=== PATIENT | female | born 1935 | race Caucasian/White ===

== ENCOUNTER → 2016-06-29 | Day surgery (SDC) | payer OTHER ==
[2016-06-29] VITALS (8 sets, daily range): BP systolic 118–144; BP diastolic 51–75
[~2016-06-29] VITALS: Ht 165.1 cm; Wt 54.9 kg
[~2016-06-29] MED LIST: Akten 3.5% 1ml Btl ONE; BSS 15ml BTL ONE; BSS 500ml btl ONE; Carbachol 0.01% Op Soln 1.5ml vial ONE; Dexamethasone 4mg/ml vial ONE; Diclofenac Sod 0.1% Op Soln ONE; EPINEPHrine 1mg/1ml Amp ONE; Gatifloxacin Opth Solution 0.5% ONE; LR 1000ml ONE; Lidocaine 1% MPF 10mg/ml 5ml ONE; Midazolam 2mg/2ml Inj ONE; NS Irrig 1000ml ONE; Phenylephrine 2.5% Op Soln ONE; Povidone-Iodine 5% opth solution ONE; Sodium Hyaluronate 14 mg/ml 0.85ml ONE; Sterile Water Irrig 1000ml IRRIG ONE; Tobradex Opth Susp 2.5ml ONE; Tropicamide 1% Opth Soln ONE; VITAMIN D1000 UNI1 ORAL; fentaNYL 100 mcg/2 mL IV ONE
[2016-06-29] MEDS: Tobradex Opth Susp 2.5ml RIGHT EYE SCH ×3 (06:42→07:04)
[2016-06-29] MEDS: Diclofenac Sod 0.1% Op Soln RIGHT EYE SCH ×3 (06:42→07:04)
[2016-06-29] MEDS: Phenylephrine 2.5% Op Soln RIGHT EYE SCH ×3 (06:42→07:04)
[2016-06-29] MEDS: Tropicamide 1% Opth Soln RIGHT EYE SCH ×3 (06:42→07:04)
[2016-06-29] MEDS: Gatifloxacin Opth Solution 0.5% RIGHT EYE SCH ×3 (06:42→07:04)
[2016-06-29] MEDS: Akten 3.5% 1ml Btl RIGHT EYE SCH ×3 (06:43→07:04)
--- NOTE | 2016-06-29 07:41 | Anethesia Preoperative Eval ---
Anesthesia Pre-op PMH/ROS General Date of Evaluation: Jun 29, 2016 Time of Evaluation: 07:41 Anesthesiologist: frank ASA Score: ASA 2 Mallampati Score Class I : Soft palate, uvula, fauces, pillars visible Class II: Soft palate, uvula, fauces visible Class III: Soft palate, base of uvula visible Class IV: Only hard plate visible Mallampati Classification: Class II Surgeon: sigrid Diagnosis: cataract Surgical Procedure: cataract extraction with IOL Anesthesia History: none Family History: no anesthesia problems Allergies: Coded Allergies: No Known Allergies (Unverified , 04/21/15) Medications: see eMAR Past Medical History Cardiovascular: Denies: CAD, HTN, NC, arrhythmia, other, valve dz Pulmonary: Denies: COPD, ROBERT, asthma, other Gastrointestinal/Genitourinary: Denies: CRI, ESRD, GERD, other Neurologic/Psychiatric: Denies: CVA, TIA, dementia, depression/anxiety, other HEENT: Reports: cataract (L), cataract (R) Hematology/Immune: Denies: DVT, anemia, bleeding disorder, other Musculoskeletal/Integumentary: Denies: DDD, DJD, OA, RA, edema, other PMH Narrative: advanced aged PSxH Narrative: left eye cataract extraction Anesthesia Pre-op Phys. Exam Physician Exam Last Vital Signs Date Time Temp Pulse Resp B/P Pulse Ox O2 Delivery O2 Flow Rate FiO2 06/29/16 06:52 97.6 68 18 131/75 100 Room Air Constitutional: NAD Neurologic: CN 2-12 intact Cardiovascular: RRR Respiratory: CTA Gastrointestinal: S/NT/ND Airway Exam Mallampati Classification 2 Mallampati Score: Class II MO: full ROM: full Dentures: no lower, no upper Anesthesia Pre-op A/P Studies Pre-op Studies: EKG - sr Risk Assessment & Plan Plan: mac Status Change Before Surgery: No Pre-Antibiotics Drug: none WILLIE ACKERMAN CRNA Jun 29, 2016 07:41
--- NOTE | 2016-06-29 07:43 | Pre-Procedure Note/Attestation ---
Pre-Procedure Note/Attestation Complete Prior to Procedure Planned Procedure: right Procedure Narrative: cataract extraction with implant right eye Indications for Procedure Pre-Operative Diagnosis: cataract right eye Attestation I attest that I discussed the nature of the procedure; its benefits; risks and complications; and alternatives (and the risks and benefits of such alternatives ), prior to the procedure, with the patient (or the patient's legal traveling sales representative). I attest that, if there was a reasonable possibility of needing a blood transfusion, the patient (or the patient's legal traveling sales representative) was given the [facility] standardized written summary, pursuant to the Dean Mullins Blood Safety Act ([place] Health and Safety Code # 1645, as amended). I attest that I re-evaluated the patient just prior to the surgery and that there has been no change in the patient's H&P, except as documented below: RADHA FABIAN Jun 29, 2016 07:43
--- NOTE | 2016-06-29 08:17 | Brief Operative Note ---
Immediate Post Operative Note Operative Note Pre-op Diagnosis: cataract right eye Procedure: phacoemulsification of cataract with implant right eye Post-op Diagnosis: same as pre-op Surgeon: radha matta Rn Dialysis: none Anesthesiologist: amador marie crna Anesthesia: MAC Specimen: none Complications: none Condition: stable Estimated Blood Loss: none Drains: none Implant(s) used?: Yes RADHA MATTA Jun 29, 2016 08:17
--- NOTE | 2016-06-29 08:39 | Immediate Post-Op Evaluation ---
Immediate Post-Op Evalulation Immediate Post-Op Evalulation Procedure: cataract extraction right eye Date of Evaluation: Jun 29, 2016 Time of Evaluation: 08:10 IV Fluids: 300 Blood Pressure Systolic: 103 Blood Pressure Diastolic: 65 Pulse Rate: 65 Respiratory Rate: 12 O2 Sat by Pulse Oximetry: 99 Temperature (Fahrenheit): 98.5 Nausea: No Vomiting: No Complications none Patient Status: awake, reacts, patent Hydration Status: adequate Drug: none TARRILLION,WILLIE VISITOR SERVICES SPECIALIST Jun 29, 2016 08:39
--- NOTE | 2016-06-29 08:40 | 48 Hour Post Anesthesia Eval ---
Post Anesthesia Evaluation Procedure: cataract extraction right eye Date of Evaluation: Jun 29, 2016 Time of Evaluation: 08:39 Blood Pressure Systolic: 115 0: 65 Pulse Rate: 70 Respiratory Rate: 14 O2 Sat by Pulse Oximetry: 98 Airway: patent Nausea: No Vomiting: No Hydration Status: adequate Mental Status/LOC: patient returned to baseline Post-Anesthesia Complications: none Follow-up care needed: N/A WILLIE ACKERMAN CRNA Jun 29, 2016 08:39
--- NOTE | 2016-06-29 09:58 | Operative Note - Dictated ---
DATE OF OPERATION: 06/29/2016 PREOPERATIVE DIAGNOSIS: Cataract, right eye. POSTOPERATIVE DIAGNOSIS: Cataract, right eye. PROCEDURE: Phacoemulsification cataract right eye with placement of posterior chamber intraocular lens. SURGEON: Marcello Gilman M.D. TICKET CHOPPER ASSEMBLER: None. ANESTHESIA: MAC/topical. ANESTHESIOLOGIST: Christel Henning C.R.N.A. INDICATION FOR PROCEDURE: Poor vision right eye. DESCRIPTION OF FINDINGS: Nuclear sclerotic and posterior subcapsular cataract right eye. DESCRIPTION OF PROCEDURE: The patient received a topical anesthetic block consisting of 3.5% Akten eye drops. The eye was then prepped and draped in usual manner. A lid speculum was placed and a Zeiss microscope was positioned. A temporal corneal groove was made with the kassidy blade. A SuperSharp blade made a stab incision at the 12 o'clock position. A 0.1 mL of 1% nonpreserved intracameral lidocaine was injected. Healon was instilled into the anterior chamber and a 2.8 mm trapezoidal kassidy blade was used to complete the temporal corneal wound. A cystotome was used to create an anterior capsular flap. Utrata forceps were used to complete the capsulorrhexis. BSS on a cannula was used to hydrodissect the nucleus. The lens nucleus was phacoemulsified in a phaco-fracture technique. Remaining cortical material was removed with the I/A and the posterior capsule polished with the I/A on Cap vac. Healon was instilled in the capsular bag and anterior chamber, and an Foote foldable one-piece posterior intraocular lens, model ZCB00, power 18.0 diopter, serial #[id number] was placed in the injector. The lens put in the capsular bag. The I/A tip was used to remove the Healon and position the lens. The wound edge was hydrated with BSS and a blunt-tipped cannula. The wound was checked and found to be watertight. The lid speculum was removed and a drop of TobraDex and Zymaxid was placed. A clear plastic shield was taped over the eye. The patient tolerated the procedure well and left the operating room in good condition. Marcello Gilman M.D. ([facility] [place]) DR: Redd JOB#: [id number] CC: ANA
== END | disposition home or self-care (01) ==
LOC: SUR 06:04
DX: H25.11 Age-related nuclear cataract, right eye (principal); H25.041 Posterior subcapsular polar age-related cataract, right eye; E21.3 Hyperparathyroidism, unspecified; E78.00 Pure hypercholesterolemia, unspecified; M81.0 Age-related osteoporosis without current pathological fracture; E55.9 Vitamin D deficiency, unspecified; Z85.828 Personal history of other malignant neoplasm of skin; Z88.1 Allergy status to other antibiotic agents; Z90.49 Acquired absence of other specified parts of digestive tract
CPT/HCPCS: 66984; J0171; J1100; J2250; J3010; J7120; V2632; 94003; 94150